=== PATIENT | female | born 1975 | race Caucasian/White ===

== ENCOUNTER 2018-02-17 07:13 | Emergency (ER) | payer OTHER ==
[2018-02-17 07:38] VITALS: BP 111/85
--- NOTE | 2018-02-17 07:59 | UC ---
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 It is warm and swollen. There is no streaking. No hx of diabetes. No prior MRSA. - History of Current Complaint Chief Complaint: UCSkin Time Seen by Provider: 02/17/18 07:33 Stated Complaint: RT FIRST FINGER DISCOMFORT/NAUSEA Hx Obtained From: Patient, Family/Hoop Cutter Hx Last Menstrual Period: 02/04/18 Onset/Duration: Gradual Onset, Lasting Hours Skin Exposure Onset/Duration: Hours Ago Timing: Constant Onset Severity: Moderate Current Severity: Moderate Pain Intensity: 6 Location: Discrete, Hand (Right) Aggravating Factor(s): Touch Alleviating Factor(s): Nothing Associated Signs & Symptoms: Positive: Nausea, Tenderness. Negative: Vomiting, Diaphoresis, Pallor, Shivering, Difficulty Breathing, Fever, Chills, Cough, Wheezing, Chest Pain, Drainage, Red Streaks - Allergy/Home Medications Allergies/Adverse Reactions: Allergies Allergy/AdvReac Type Severity Reaction Status Date / Time prochlorperazine Allergy Muscle Ache Verified 02/17/18 07:24 [From Compazine] ENVIRONMENTAL Allergy SNEEZE, Uncoded 02/17/18 07:24 ITCHY WATERY EYES Home Medications: Home Medications Acetaminophen [Acetaminophen Extra Strength] 500 mg PO ONCE PRN 02/17/18 [ History Confirmed 02/17/18] Dicyclomine CAP* [Bentyl CAP*] 10 mg PO TID PRN 02/17/18 [History Confirmed ] Gabapentin CAP(*) [Neurontin 300 CAP(*)] 600 mg PO TID 02/17/18 [History Confirmed 02/17/18] Iron 18 mg PO DAILY 02/17/18 [History Confirmed 02/17/18] Boston-3 Fatty Acids/Fish Oil [Boston 3] 1 cap PO DAILY 02/17/18 [History Confirmed 02/17/18] Ondansetron ODT TAB* [Zofran 4 MG Odt TAB*] 4 mg PO Q6H PRN 02/17/18 [History Confirmed 02/17/18] traMADol TAB* [Ultram*] 100 mg PO Q4H PRN 02/17/18 [History Confirmed 02/17/18] Review of Systems Skin: Other - swelling. All Other Systems Reviewed And Are Negative: Yes PMH/Surg Hx/FS Hx/Imm Hx Previously Healthy: No - Depression/anxiety, back pain, sciatica. - Surgical History Surgical History: Yes Surgery Procedure, Year, and Place: D+C 01/19 [facility]. miomectomy - Social History Occupation: Employed Full-time Lives: With Family Alcohol Use: Rare Substance Use Type: None Smoking Status (MU): Never Smoked Tobacco - Immunization History Most Recent Influenza Vaccination: july 2014 Most Recent Tetanus Shot: unknown Most Recent Pneumonia Vaccination: refuses Physical Exam Triage Information Reviewed: Yes Appearance: Well-Appearing, No Pain Distress, Well-Nourished Vital Signs: Initial Vital Signs Temp 98.9 F 02/17/18 07:32 Pulse 73 02/17/18 07:32 Resp 16 02/17/18 07:32 BP 111/85 02/17/18 07:32 Pulse Ox 100 02/17/18 07:32 Vital Signs Reviewed: Yes Eyes: Positive: Conjunctiva Clear. Negative: Conjunctiva Inflamed ENT: Positive: Normal ENT inspection Neck: Positive: Supple, Nontender, No Lymphadenopathy Respiratory: Negative: Respiratory distress, Decreased breath sounds, Accessory muscle use Cardiovascular: Positive: Brisk Capillary Refill Abdomen Description: Negative: Distended Musculoskeletal Exam: Other - distal index finger warm, swollen and tender. No fluctuance. no streaking. No obvious joint involvement. Musculoskeletal: Positive: Strength Intact. Negative: No Edema Neurological: Positive: Alert, Muscle Tone Normal. Negative: Fatigued Psychological: Positive: Age Appropriate Behavior Skin: Negative: rashes Course/Dx - Course Course Of Treatment: distal felon without abcess. antibiotics and rest. f/u if needed. - Diagnoses Provider Diagnoses: fellon. finger cellulitis right index finger. Discharge - Sign-Out/Discharge Documenting (check all that apply): Discharge/Admit/Transfer - Discharge Plan Condition: Good Disposition: HOME Prescriptions: Sulfamethox/Trimethoprim DS* [Bactrim DS 800/160 TAB*] 1 tab PO BID #20 tab Patient Education Materials: Cellulitis (ED) Forms: *Work Release Referrals: Namrata Holt NP [Primary Care Provider] - 2 Days - Billing Disposition and Condition Condition: GOOD Disposition: Home
== END 2018-02-17 08:09 | disposition home or self-care (01) ==
LOC: UCCORT 07:13
DX: L02.511 Cutaneous abscess of right hand (principal); L03.011 Cellulitis of right finger; Z88.8 Allergy status to other drugs, medicaments and biological substances; Z91.09 Other allergy status, other than to drugs and biological substances
CPT/HCPCS: 99212; G0463

== ENCOUNTER 2019-06-13 07:48 | Emergency (ER) | payer OTHER ==
[2019-06-13 08:36] VITALS: BP 111/77
--- NOTE | 2019-06-13 09:12 | UC ---
Throat Pain/Nasal Chet HPI - HPI Summary HPI Summary: 44-year-old woman comes in with a chief complaint of 3 weeks of upper respiratory tract infection symptoms. She's had rhinorrhea she's got sinus pressure she has postnasal drip with upper chest congestion and sputum production is green. Been using an anti-pot and some [id number] medications to help some with the symptoms. No recent fevers measured. Also been quite fatigued. No complaint of abdominal pain or dysuria. Does have some body aches. - History of Current Complaint Chief Complaint: UCGeneralIllness Stated Complaint: ST,EAR PAIN,COUGH,BODY ACHES Time Seen by Provider: 06/13/19 08:55 Hx Last Menstrual Period: 02/04/18 Pain Intensity: 8 - Allergies/Home Medications Allergies/Adverse Reactions: Allergies Allergy/AdvReac Type Severity Reaction Status Date / Time prochlorperazine Allergy Muscle Ache Verified 06/13/19 08:32 [From Compazine] ENVIRONMENTAL Allergy SNEEZE, Uncoded 06/13/19 08:32 ITCHY WATERY EYES Home Medications: Home Medications Naproxen Sodium [Aleve] 220 mg PO ONCE 06/13/19 [History Confirmed 06/13/19] oxyCODONE/Acetamin 5/325 MG* [Percocet 5/325 TAB*] 1 tab PO Q4H PRN 06/13/19 [ History Confirmed 06/13/19] PMH/Surg Hx/FS Hx/Imm Hx Previously Healthy: Yes - Surgical History Surgical History: Yes Surgery Procedure, Year, and Place: D+C 01/19 [facility] [place] - Family History Known Family History: Positive: Non-Contributory - Social History Alcohol Use: Rare Substance Use Type: None Smoking Status (MU): Never Smoked Tobacco - Immunization History Most Recent Influenza Vaccination: july 2014 Most Recent Tetanus Shot: unknown Most Recent Pneumonia Vaccination: refuses Review of Systems All Other Systems Reviewed And Are Negative: Yes Constitutional: Positive: Fatigue, Other - SEE HPI Skin: Positive: Negative Eyes: Positive: Negative ENT: Positive: Sore Throat, Sinus Congestion, Sinus Pain/Tenderness Respiratory: Positive: Cough, Other - SEE HPI Cardiovascular: Positive: Negative Gastrointestinal: Positive: Negative Genitourinary: Positive: Negative Motor: Positive: Negative Neurovascular: Positive: Negative Musculoskeletal: Positive: Myalgia Neurological: Positive: Other - SEE HPI Psychological: Positive: Negative Is Patient Immunocompromised?: No Physical Exam Triage Information Reviewed: Yes Appearance: No Pain Distress, Well-Nourished, Ill-Appearing - MILD Vital Signs: Initial Vital Signs Temp 98.3 F 06/13/19 08:29 Pulse 65 06/13/19 08:29 Resp 15 06/13/19 08:29 BP 111/77 06/13/19 08:29 Pulse Ox 100 06/13/19 08:29 Vital Signs Reviewed: Yes Eye Exam: Normal Eyes: Positive: Conjunctiva Clear ENT: Positive: Pharyngeal erythema, Nasal congestion, Nasal drainage, TMs normal Neck: Positive: Supple Respiratory: Positive: Lungs clear, Normal breath sounds, No respiratory distress Cardiovascular: Positive: RRR Musculoskeletal: Positive: Strength Intact, ROM Intact Neurological: Positive: Alert Psychological: Positive: Age Appropriate Behavior Skin Exam: Normal Throat Pain/Nasal Course/Dx - Course Course Of Treatment: With 3 weeks of symptoms and continuing to have green sputum we will treat with doxycycline. Discussed the possibility of mononucleosis patient declined testing for mononucleosis at this time. Patient will get reevaluated if worse or any questions or concerns. - Differential Dx/Diagnosis Provider Diagnosis: Sinusitis, Bronchitis Discharge ED - Sign-Out/Discharge Documenting (check all that apply): Patient Departure All imaging exams completed and their final reports reviewed: No Studies - Discharge Plan Condition: Stable Disposition: HOME Prescriptions: DOXYcycline CAP(*) [DOXYcycline 100MG CAP(*)] 100 mg PO BID #20 cap Patient Education Materials: Sinusitis (ED), Acute Bronchitis (ED) Forms: *Work Release Referrals: Namrata Holt NP [Primary Care Provider] - Additional Instructions: FOLLOW UP WITH YOUR DOCTOR IF NOT COMPLETELY IMPROVED. GET RECHECKED SOONER IF WORSE OR ANY QUESTIONS OR CONCERNS. - Billing Disposition and Condition Condition: STABLE Disposition: Home
== END 2019-06-13 09:18 | disposition home or self-care (01) ==
LOC: UCCORT 07:48
DX: J32.9 Chronic sinusitis, unspecified (principal); J40 Bronchitis, not specified as acute or chronic; M79.10 Myalgia, unspecified site; Z88.8 Allergy status to other drugs, medicaments and biological substances; Z91.09 Other allergy status, other than to drugs and biological substances
CPT/HCPCS: 87651; 99212; G0463

== ENCOUNTER 2019-08-22 07:13 | Emergency (ER) | payer OTHER ==
[2019-08-22 07:31] VITALS: BP 107/74
--- NOTE | 2019-08-22 07:54 | UC ---
Throat Pain/Nasal Chet HPI - HPI Summary HPI Summary: 44-year-old woman comes in with a chief complaint of upper respiratory tract infection symptoms for 3 days. She has some rhinorrhea with postnasal drip cough chest congestion sore throat. Her cough is worse at night and she's been having hard time sleeping because of the cough. She's tried multiple over-the- counter medications with out much help with the cough and sleeping. She requested last a cough medicine with codeine to help with the cough. - History of Current Complaint Chief Complaint: UCGeneralIllness Stated Complaint: COUGH CONGESTION ACHY Time Seen by Provider: 08/22/19 07:37 Hx Last Menstrual Period: 08/18/19 Pain Intensity: 8 - Allergies/Home Medications Allergies/Adverse Reactions: Allergies Allergy/AdvReac Type Severity Reaction Status Date / Time prochlorperazine Allergy Muscle Ache Verified 06/13/19 08:32 [From Compazine] ENVIRONMENTAL Allergy SNEEZE, Uncoded 06/13/19 08:32 ITCHY WATERY EYES Home Medications: Home Medications ALPRAZolam [Xanax] 0.25 mg PO TID PRN 08/22/19 [History Confirmed 08/22/19] Calcium Carbonate 260 mg PO DAILY 08/22/19 [History Confirmed 08/22/19] Magnesium [Magnesium Elemental] 30 mg PO DAILY 08/22/19 [History Confirmed 08/22] PMH/Surg Hx/FS Hx/Imm Hx Previously Healthy: Yes - Surgical History Surgical History: Yes Surgery Procedure, Year, and Place: [place] [facility] [place] - Family History Known Family History: Positive: Non-Contributory - Social History Alcohol Use: Rare Substance Use Type: None Smoking Status (MU): Never Smoked Tobacco - Immunization History Most Recent Influenza Vaccination: july 2014 Most Recent Tetanus Shot: unknown Most Recent Pneumonia Vaccination: refuses Review of Systems All Other Systems Reviewed And Are Negative: Yes Constitutional: Positive: Other - see hpi Skin: Positive: Negative Eyes: Positive: Negative ENT: Positive: Sore Throat, Nasal Discharge, Sinus Congestion, Other - see hpi Respiratory: Positive: Cough, Other - see hpi Cardiovascular: Positive: Negative Gastrointestinal: Positive: Negative Motor: Positive: Negative Neurovascular: Positive: Negative Musculoskeletal: Positive: Negative Neurological: Positive: Negative Psychological: Positive: Negative Is Patient Immunocompromised?: No Physical Exam Triage Information Reviewed: Yes Appearance: No Pain Distress, Well-Nourished, Ill-Appearing - mild Vital Signs: Initial Vital Signs Temp 98.6 F 08/22/19 07:26 Pulse 75 08/22/19 07:26 Resp 16 08/22/19 07:26 BP 107/74 08/22/19 07:26 Pulse Ox 100 08/22/19 07:26 Vital Signs Reviewed: Yes Eye Exam: Normal Eyes: Positive: Conjunctiva Clear ENT: Positive: Pharynx normal, Nasal congestion, Nasal drainage, TMs normal Neck: Positive: Supple Respiratory: Positive: Lungs clear, Normal breath sounds, No respiratory distress Cardiovascular: Positive: RRR Musculoskeletal: Positive: Strength Intact, ROM Intact Neurological: Positive: Alert, Muscle Tone Normal Psychological: Positive: Age Appropriate Behavior Skin Exam: Normal Throat Pain/Nasal Course/Dx - Course Course Of Treatment: Symptoms are consistent with upper respiratory tract infection, almost certainly viral in etiology at this time. Patient does have sore throat but it' s not in the posterior pharynx and patient reports that she's had strep throat before and this does not feel like strep throat. Patient does take Percocet when necessary. We discussed to not take the Robitussin-AC at the same time she takes the Percocet. Patient will follow-up with primary care doctor get reevaluated sooner if worse any questions or concerns. - Differential Dx/Diagnosis Provider Diagnosis: Upper respiratory infection, Cough Discharge ED - Sign-Out/Discharge Documenting (check all that apply): Patient Departure All imaging exams completed and their final reports reviewed: No Studies - Discharge Plan Condition: Stable Disposition: HOME Prescriptions: guaiFENesin/CODIENE 100mg/10mg [Robitussin AC 100Mg/10Mg in 5 ml] 10 ml PO Q4H PRN #180 ml MDD 60ML PRN Reason: Cough Patient Education Materials: Upper Respiratory Infection (ED), Acute Cough (ED) Forms: *Work Release Referrals: Namrata Holt NP [Primary Care Provider] - Additional Instructions: FOLLOW UP WITH YOUR DOCTOR IF NOT COMPLETELY IMPROVED. GET REEVALUATED SOONER IF NOT IMPROVING OR WORSE OR ANY QUESTIONS OR CONCERNS. - Billing Disposition and Condition Condition: STABLE Disposition: Home
== END 2019-08-22 07:59 | disposition home or self-care (01) ==
LOC: UCCORT 07:13
DX: J06.9 Acute upper respiratory infection, unspecified (principal); R05 Cough; J02.9 Acute pharyngitis, unspecified; Z88.8 Allergy status to other drugs, medicaments and biological substances; Z91.09 Other allergy status, other than to drugs and biological substances
CPT/HCPCS: 99212; G0463

== ENCOUNTER 2020-06-28 16:19 | Inpatient (IN) ==
[2020-06-28] MEDS ORDERED: NS 0.9% 1000 ml BAG 1,000 ML IV ONE ×3 (17:42→19:07)
[2020-06-28] MEDS ORDERED: Ondansetron 4 mg VIAL 2 MG/ML 2 ml VIAL IV ONE (17:42)
[2020-06-28 18:52] LABS: ABS Lymphocytes 0.5 10^3/ul (1.0-4.8); ABS Neutrophils 22.8 10^3/ul (1.5-7.7); Hematocrit 21 % (35-47); Hemoglobin 5.9 g/dL (12.0-16.0); Lymphocyte % 1.8 %; Mean Corpuscular HGB Conc 29 g/dL (31-36); Mean Corpuscular Hemoglobin 18 pg (27-31); Mean Corpuscular Volume 63 fL (80-97); Mean Platelet Volume 6.7 fL (7.4-10.4); Platelet Count 304 10^3/uL (150-450); Red Cell Distribution Width 20 % (10-15); White Blood Count 25.3 10^3/uL (3.5-10.8)
[2020-06-28 19:01] LABS: ALT 12 U/L (7-52); AST 15 U/L (13-39); Albumin 3.1 g/dL (3.2-5.2); Albumin/Globulin Ratio 1.1 (1-3); Alkaline Phosphatase 66 U/L (34-104); Anion Gap 9 mmol/L (2-11); BUN/Creatinine Ratio 14.6 (8-20); Blood Urea Nitrogen 18 mg/dL (6-24); CO2 Carbon Dioxide 23 mmol/L (22-32); Calcium 7.9 mg/dL (8.6-10.3); Chloride 99 mmol/L (101-111); EGFR African American 57.4 (>60); EGFR Non-African American 47.4 (>60); Globulin 2.7 g/dL (2-4); Glucose 106 mg/dL (70-100); Magnesium 1.4 mg/dL (1.9-2.7); Potassium 3.6 mmol/L (3.5-5.0); Sodium 131 mmol/L (135-145); Total Protein 5.8 g/dL (6.4-8.9)
[2020-06-28] MEDS ORDERED: Piperacillin/Tazobac ADVAN 3.375 GM in NS 0.9% 100 ml BAG 100 ML IV ONE (19:07)
[2020-06-28] MEDS ORDERED: Piperacillin/Tazobac 3.375 GM BAG ONE (19:17)
[2020-06-28 19:18] LABS: Microcytosis 2+
[2020-06-28 19:19] LABS: Influenza A Molecular Negative (Negative); Influenza B Molecular Negative (Negative)
[2020-06-28 19:19] LABS: Polychromasia 1+
[2020-06-28] MEDS ORDERED: Magnesium Sulfate 2 gm BAG 2 GM/50 ML BAG IVPB ONE (19:25)
[2020-06-28 20:02] LABS: C Reactive Protein 299.57 mg/L (<8.01)
[2020-06-28] MEDS ORDERED: Vancomycin 1,000 MG in NS 0.9% 250 ml 250 ML IVPB ONE (20:27)
[2020-06-28 20:48] LABS: LDH 208 U/L (140-271)
[2020-06-28 20:51] LABS: Iron < 20 ug/dL (50-212)
[2020-06-28 20:54] LABS: Creatine Kinase 27 U/L (10-223)
[2020-06-28] MEDS ORDERED: Cefepime 2 GM in Dextrose 2 GM/50 ML BAG IV SCH (21:00)
[2020-06-28 21:06] LABS: Ferritin 48.1 ng/mL (11-307)
[2020-06-28 21:08] LABS: Urine Appearance Turbid; Urine Bilirubin Negative (Negative); Urine Blood 3+ (Negative); Urine Color Amber; Urine Glucose Negative (Negative); Urine Ketones Negative (Negative); Urine Nitrite Negative (Negative); Urine Protein 2+(100 mg/dL) (Negative); Urine Specific Gravity 1.009 (1.010-1.030); Urine Urobilinogen Negative (Negative)
[2020-06-28 21:11] LABS: Urine Bacteria 1+ (Absent); Urine Red Blood Cell 3+(>10/hpf) (Absent); Urine White Blood Cell 3+(>20/hpf) (Absent)
[2020-06-28 21:20] LABS: % Iron Saturation 5 % (15-55); Total Iron Binding Capacity 378 mcg/dL (250-450); Transferrin 270 mg/dL (203-362); Unsaturated Iron Binding < 363 ug/dL
[2020-06-28 21:24] LABS: Vitamin B12 496 pg/mL (180-914)
[2020-06-28] MEDS ORDERED: Lactated Ringers 1000 ml BAG 1,000 ML IV ONE (21:32)
[2020-06-28] MEDS ORDERED: Vancomycin per Pharmacy 1 EA NOTE FOLLOW UP SCH (23:00)
[2020-06-29] MEDS ORDERED: Ondansetron 4 mg VIAL 2 MG/ML 2 ml VIAL ONE ×3 (02:49→23:35)
[2020-06-29] MEDS: Ondansetron 4 mg VIAL 2 MG/ML 2 ml VIAL IV PRN ×3 (03:28→23:38)
[2020-06-29] MEDS: Cefepime 2 GM in Dextrose 2 GM/50 ML BAG IV SCH ×2 (03:55→18:32)
[2020-06-29] MEDS ORDERED: NS 0.9% 500 ml BAG 500 ML IV ONE (06:25)
[2020-06-29] MEDS ORDERED: NS 0.9% 1000 ml BAG 1,000 ML IV ONE (09:00)
[2020-06-29] MEDS ORDERED: Vancomycin 750 MG in NS 0.9% 250 ML IVPB SCH (10:00)
[2020-06-29 11:05] LABS: Hematocrit 31 % (35-47); Hemoglobin 8.7 g/dL (12.0-16.0); Mean Corpuscular HGB Conc 28 g/dL (31-36); Mean Corpuscular Hemoglobin 21 pg (27-31); Mean Corpuscular Volume 73 fL (80-97); Mean Platelet Volume 7.2 fL (7.4-10.4); Platelet Count 199 10^3/uL (150-450); Red Blood Count 4.21 10^6 /uL (3.70-4.87); Red Cell Distribution Width 24 % (10-15); White Blood Count 23.5 10^3/uL (3.5-10.8)
[2020-06-29 11:32] LABS: Calcium 7.5 mg/dL (8.6-10.3); Potassium 4.5 mmol/L (3.5-5.0)
[2020-06-29 11:33] LABS: ABS Lymphocytes 0.6 10^3/ul (1.0-4.8); ABS Neutrophils 21.8 10^3/ul (1.5-7.7); Lymphocyte % 2.6 %
[2020-06-29 11:38] LABS: BUN/Creatinine Ratio 17.5 (8-20); EGFR African American 94.3 (>60); EGFR Non-African American 77.9 (>60)
[2020-06-29] MEDS: NS 0.9% 1000 ml BAG 1,000 ML IV SCH (20:08)
[2020-06-30] MEDS: Cefepime 2 GM in Dextrose 2 GM/50 ML BAG IV SCH ×3 (04:15→16:19)
[2020-06-30 07:43] LABS: ABS Lymphocytes 0.4 10^3/ul (1.0-4.8); ABS Monocytes 1.1 10^3/ul (0-0.8); ABS Neutrophils 20.9 10^3/ul (1.5-7.7); Eosinophil % 0.1 %; Hematocrit 26 % (35-47); Hemoglobin 7.8 g/dL (12.0-16.0); Lymphocyte % 1.8 %; Mean Corpuscular HGB Conc 30 g/dL (31-36); Mean Corpuscular Hemoglobin 20 pg (27-31); Mean Corpuscular Volume 68 fL (80-97); Mean Platelet Volume 7.1 fL (7.4-10.4); Platelet Count 277 10^3/uL (150-450); Red Blood Count 3.83 10^6 /uL (3.70-4.87); Red Cell Distribution Width 24 % (10-15); White Blood Count 22.4 10^3/uL (3.5-10.8)
[2020-06-30 08:01] LABS: Albumin 2.8 g/dL (3.2-5.2); Anion Gap 6 mmol/L (2-11); CO2 Carbon Dioxide 22 mmol/L (22-32); Calcium 7.9 mg/dL (8.6-10.3); Chloride 109 mmol/L (101-111); Indirect Bilirubin 0.3 mg/dL (0.3-1.0); Potassium 3.8 mmol/L (3.5-5.0); Sodium 137 mmol/L (135-145)
[2020-06-30 08:07] LABS: ALT 38 U/L (7-52); AST 34 U/L (13-39); Alkaline Phosphatase 114 U/L (34-104); BUN/Creatinine Ratio 14.6 (8-20); Blood Urea Nitrogen 12 mg/dL (6-24); EGFR African American 91.6 (>60); EGFR Non-African American 75.7 (>60); Globulin 2.7 g/dL (2-4); Glucose 107 mg/dL (70-100); Total Protein 5.5 g/dL (6.4-8.9)
[2020-06-30] MEDS ORDERED: Influenza VAC *QUAD* 2020-21* 0.5 ML SYRINGE IM ONE (09:00)
[2020-06-30] MEDS: NS 0.9% 1000 ml BAG 1,000 ML IV SCH (09:26)
[2020-06-30] MEDS ORDERED: Vancomycin Trough Check NOTE FOLLOW UP ONE (09:30)
[2020-06-30] MEDS: Ondansetron 4 mg VIAL 2 MG/ML 2 ml VIAL IV PRN (12:30)
[2020-06-30 12:46] LABS: % Iron Saturation 6 % (15-55); Iron < 20 ug/dL (50-212); Total Iron Binding Capacity 318 mcg/dL (250-450); Transferrin 227 mg/dL (203-362); Unsaturated Iron Binding < 303 ug/dL
[2020-06-30 13:04] LABS: Ferritin 108.9 ng/mL (11-307)
[2020-06-30 17:13] VITALS: BP 110/65
== END 2020-06-30 17:40 | disposition home or self-care (01) | DRG 720 ==
LOC: ED 16:19 → MED 16:19 → OBSVTOIN 20:25 → MED 06-29 00:24
PROVIDERS: ADMIT Internal Medicine; ATTEND Internal Medicine